=== PATIENT | male | born 1985 | race Caucasian/White ===

== ENCOUNTER 2017-05-14 16:05 | Inpatient (IN) | payer OTHER ==
[~2017-05-14] VITALS: Ht 167.6 cm; Wt 59.9 kg
--- NOTE | ~2017-05-14 | EKG ---
[facility] [place] [address] ELECTROCARDIOGRAM REPORT Name: JACKPRISCILLALILIA Colon Room #: [facility] Rhea#: [id number] Admission: 05/14/17 Attend Phys: Discharge: Date of : 85 Report #: [id number] THIS REPORT FOR: //name// [facility] ED Test Date: 2017-05-14 Test Time: 16:36:25 Pat Name: LILIA MEDELLIN Department: Room: Gender: Volunteer Services Specialist: GILMER : 1985 Requested By: Rodolfo Quevedo Order Number: [id number] MD: Emerson Olivas Measurements Intervals [place] Rate: 77 P: 47 VA: 152 QRS: 36 QRSD: 103 T: 51 QT: 399 QTc: 452 Interpretive Statements Sinus rhythm RSR' in V1 or V2, probably normal variant Baseline wander in lead(s) III No previous ECG available for comparison Electronically Signed On 05-14-2017 16:52:15 CDT by Emerson Olivas [email or web address] <ELECTRONICALLY SIGNED> By: Emerson Olivas MD, [facility] 05/14/17 1652 [id number] 1636 Emerson Olivas MD, FACC /EPI
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
--- NOTE | ~2017-05-14 | EEG ---
[facility] [place] [address] ELECTROENCEPHALOGRAM Name: LILIA MEDELLIN IV Room #: 429-P [facility] IN M.R.#: [id number] Admission: 05/14/17 Attend Phys: Marty Buckley MD Discharge: Date of : 85 Report #: [id number] THIS REPORT FOR: //name// CC: Marty Barksdale DATE OF SERVICE: 05/15/2017 This patient is being evaluated for an episode of syncope. EEG was done by placing the electrodes by standard 10/20 system of electrode placement. Both referential and sequential montages were used for recording. Background activity in this patient's EEG is about 11 Hz and 40 microvolts. This patient has a lot of artifact in his EEG for some reason. He did become drowsy that is associated with bilateral slowing. Photic stimulation was unremarkable. Throughout the record, no active epileptiform activity was noticed. IMPRESSION: This patient's EEG is masked by a lot of artifact. I do not see any active epileptiform activity. The patient will be reexamined to see why he is having so much artifact especially artifact in the eye. By: [id number] 1513 Chintan Martin MD /nt
[~2017-05-14 16:05] MED LIST: NOHOMEMEDICATIONS; NORCO 5-325 TA1 EACH PO
[2017-05-14 16:10] VITALS: BP 148/96
[2017-05-14] MEDS ORDERED: TRAZODONE HCL50 MG PO (16:16)
[2017-05-14 16:59] LABS: ABSOLUTE NEUTROPHILS 2.1 thou/uL (1.4-8.2); BASOPHILS 0.9 % (0.0-2.0); EOSINOPHILS 0.4 % (0.0-3.0); HEMATOCRIT 46.6 % (42.0-52.0); LYMPHOCYTES 32.7 % (24.0-44.0); MCH 32.1 pg (26.0-34.0); MCHC 34.3 g/dL (28.0-37.0); MCV 93.6 fL (80.0-100.0); MONOCYTES 9.9 % (1.0-8.0); PLATELET COUNT 124 thou/uL (150-400); POLYS 56.1 % (36.0-66.0); RBC 4.98 mil/uL (4.50-6.00); RDW 14.7 % (10.5-14.5); WBC 3.7 thou/uL (4.0-11.0)
[2017-05-14 17:08] LABS: CALCIUM 8.9 mg/dL (8.5-10.1); CREATININE 0.8 mg/dL (0.7-1.3); POTASSIUM 3.4 mmol/L (3.5-5.1)
[2017-05-14 17:11] LABS: ALBUMIN 3.5 g/dL (3.4-5.0); TOTAL BILIRUBIN 0.4 mg/dL (<0.1-1.0); TOTAL PROTEIN 6.9 g/dL (6.4-8.2)
[2017-05-14 17:37] VITALS: BP 138/93
[2017-05-14 19:35] VITALS: BP 123/90
[2017-05-14 19:49] VITALS: BP 123/90
[2017-05-15 04:20] VITALS: BP 138/82
[2017-05-15 07:45] VITALS: BP 141/95
[2017-05-15 12:38] LABS: TSH 0.734 uIU/mL (0.358-3.740)
[2017-05-15 16:12] LABS: HAV IgM AB (ANTI-HAV IgM) Negative (Negative); HEPATITIS B SURFACE AG Negative (Negative); HEPATITIS C VIRUS AB <0.1 (0.0-0.9)
[2017-05-15 21:15] VITALS: BP 126/95
[2017-05-16 04:30] VITALS: BP 133/101
[2017-05-16 08:17] VITALS: BP 136/95
[2017-05-16] MEDS ORDERED: FOLIC ACID1 MG PO (10:29)
[2017-05-16] MEDS ORDERED: VITAMIN B-1100 M1 PO (10:29)
[2017-05-16 11:34] VITALS: BP 136/95
== END 2017-05-16 12:11 | disposition home or self-care (01) | DRG 102 ==
LOC: ER 16:05 → 4E 19:09 → EROBS 19:09 → 4E 19:49 → ENTRNSPT 05-16 11:58 → EDTRNSPTSTS 05-16 12:00 → 4E 05-16 12:11
PROVIDERS: Emergency Medicine; Nurse Practitioner Acute Care; Psychiatry & Neurology Neuromuscular Medicine
DX: F07.81 Postconcussional syndrome (principal); E43 Unspecified severe protein-calorie malnutrition; E87.6 Hypokalemia; F10.20 Alcohol dependence, uncomplicated; R74.0 Nonspecific elevation of levels of transaminase and lactic acid dehydrogenase [LDH]; F17.210 Nicotine dependence, cigarettes, uncomplicated; S09.90XA Unspecified injury of head, initial encounter; X58.XXXA Exposure to other specified factors, initial encounter; Y93.89 Activity, other specified; Y92.89 Other specified places as the place of occurrence of the external cause; Y99.8 Other external cause status; Z79.899 Other long term (current) drug therapy
CPT/HCPCS: 10183

== ENCOUNTER 2018-03-15 13:52 | Emergency (ER) | payer OTHER ==
[~2018-03-15] VITALS: Ht 167.6 cm; Wt 72.6 kg
[~2018-03-15 13:52] MED LIST changes: +FOLIC ACID1 MG PO; +TRAZODONE HCL50 MG PO; +VITAMIN B-1100 M1 PO
[2018-03-15 14:01] VITALS: BP 145/88
[2018-03-15 17:05] VITALS: BP 120/96
[2018-03-15] MEDS ORDERED: PREDNISONE 20 M20 MG PO (17:40)
[2018-03-15] MEDS ORDERED: EPIPEN 2-P0.3 MG/0.3 IM (17:50)
== END 2018-03-15 17:10 | disposition home or self-care (01) ==
LOC: ER 13:52 → EROBS 15:24
DX: K12.2 Cellulitis and abscess of mouth (principal); F17.210 Nicotine dependence, cigarettes, uncomplicated